=== PATIENT | male | born 1980 | race Caucasian/White ===

== ENCOUNTER 2024-09-11 07:20 | Emergency (ER) | payer OTHER ==
[~2024-09-11] VITALS: Ht 170.2 cm; Wt 66.8 kg
[2024-09-11 07:51] VITALS: BP 133/91; PULSE 81; RESP 18; TEMP 97.9; O2SAT 97
[2024-09-11] MEDS ORDERED: IBUP-1492 PO (09:31)
[2024-09-11] MEDS ORDERED: SULF-261 PO (09:31)
[2024-09-11] MEDS: SULFAMETHOX/TRIMETH DS 800-160 MG/TABLET PO ONE (09:58)
[2024-09-11] MEDS: IBUPROFEN 600 MG TABLET PO ONE (09:58)
[2024-09-11] MEDS: PERTUSS(ACELL),DIPH,TET/PF 0.5 ML SYRINGE [ADULT] IM. ONE (10:01)
== END 2024-09-11 10:11 | disposition home or self-care (01) ==
LOC: EMS 07:24
DX: S61.412A Laceration without foreign body of left hand, initial encounter (principal); S60.222A Contusion of left hand, initial encounter; Z79.899 Other long term (current) drug therapy; V87.8XXA Person injured in other specified noncollision transport accidents involving motor vehicle (traffic), initial encounter; Y93.55 Activity, bike riding; Y92.488 Other paved roadways as the place of occurrence of the external cause; Y99.8 Other external cause status
CPT/HCPCS: 90471; 90715; 99283

== ENCOUNTER 2024-10-16 02:26 | Emergency (ER) | payer OTHER ==
[~2024-10-16] VITALS: Ht 167.6 cm; Wt 67.3 kg
[~2024-10-16 02:26] MED LIST: IBUP-1492 PO; SULF-261 PO
[2024-10-16 03:07] VITALS: BP 142/95; PULSE 100; RESP 18; TEMP 98; O2SAT 99
== END 2024-10-16 04:23 | disposition left against medical advice (07) ==
LOC: EMS 02:46
DX: E86.0 Dehydration (principal); Z53.21 Procedure and treatment not carried out due to patient leaving prior to being seen by health care provider

== ENCOUNTER 2024-10-23 03:22 | Emergency (ER) | payer OTHER ==
[~2024-10-23] VITALS: Ht 167.6 cm; Wt 67.3 kg
[2024-10-23 03:23] VITALS: TEMP 98.6
[2024-10-23 04:00] VITALS: BP 144/88; PULSE 90; RESP 18; O2SAT 99
== END 2024-10-23 05:25 | disposition home or self-care (01) ==
LOC: EMS 03:27
DX: R07.9 Chest pain, unspecified (principal); R06.02 Shortness of breath; Z53.21 Procedure and treatment not carried out due to patient leaving prior to being seen by health care provider
CPT/HCPCS: 93005; 99283

== ENCOUNTER 2025-01-28 13:56 | Emergency (ER) | payer OTHER ==
[~2025-01-28] VITALS: Ht 170.2 cm; Wt 69.1 kg
[2025-01-28 14:09] VITALS: TEMP 98.6
[2025-01-28 14:34] LABS: COVID AG,FIA SOURCE NASAL SWAB
[2025-01-28 15:08] LABS: SARS-COV2 (COVID) ANTIGEN,FIA Negative (Negative)
[2025-01-28 15:09] LABS: INFLUENZA TYPE A NEGATIVE FOR TYPE A (NEGATIVE); INFLUENZA TYPE B NEGATIVE FOR TYPE B (NEGATIVE)
[2025-01-28] MEDS: IBUPROFEN 600 MG TABLET PO ONE (15:25)
[2025-01-28] MEDS: ACETAMINOPHEN 500 MG TABLET PO ONE (15:25)
[2025-01-28] MEDS ORDERED: IBUP-1492 PO (15:37)
[2025-01-28] MEDS ORDERED: ACET-2247 PO (15:37)
[2025-01-28 16:09] VITALS: BP 126/87; PULSE 95; RESP 18; O2SAT 99
== END 2025-01-28 16:11 | disposition home or self-care (01) ==
LOC: EMS 13:56
DX: J02.9 Acute pharyngitis, unspecified (principal); R05.9 Cough, unspecified; Z79.899 Other long term (current) drug therapy; Z20.822 Contact with and (suspected) exposure to COVID-19
CPT/HCPCS: 71046; 87804; 99284